=== PATIENT | female | born 1980 | race Caucasian/White ===

== ENCOUNTER 2017-03-14 03:48 | Emergency (ER) | payer SELFPAY ==
[2017-03-14 04:16] VITALS: BP 109/60; PULSE 79; RESP 18; TEMP 98.7; O2SAT 98
--- NOTE | 2017-03-14 04:51 | ED PDOC ---
HPI: General Adult Time Seen by Provider: 03/14/17 04:06 Chief Complaint (Nursing): ENT Problem History Per: Patient Additional Complaint(s): Pt. states since Thursday she's had cough and congestion. Reports her daughter was diagnosed with the flu earlier this week. Pt. states she was sleeping this evening when she suddenly felt a "pop" in her L ear and she noticed blood coming out of it. Reports hearing as if air is passing through her air. Denies trauma, headache, fever, sore throat, sore throat. Past Medical History Reviewed: Historical Data, Nursing Documentation, Vital Signs Vital Signs: Last Vital Signs Temp 98.7 F 03/14/17 04:13 Pulse 79 03/14/17 04:13 Resp 18 03/14/17 04:13 BP 109/60 03/14/17 04:13 Pulse Ox 98 03/14/17 04:13 - Family History Family History: States: No Known Family Hx - Home Medications Home Medications: Ambulatory Orders Medication Instructions Recorded Amoxicillin [Amoxil 500 mg Cap] 500 mg PO Q8 #21 cap 03/14/17 - Allergies Allergies/Adverse Reactions: Allergies Allergy/AdvReac Type Severity Reaction Status Date / Time No Known Allergies Allergy Verified 03/14/17 04:16 Review of Systems ROS Statement: Except As Marked, All Systems Reviewed And Found Negative ENT: Positive for: Ear Pain, Nose Congestion Respiratory: Positive for: Cough Physical Exam - Physical Exam Appears: Positive for: Well, Non-toxic, No Acute Distress Skin: Positive for: Normal Color, Warm. Negative for: Rash Eye Exam: Positive for: EOMI, Normal appearance, PERRL ENT: Positive for: TM Is/Are (L TM with small perforation and dry blood noted in canal; L TM is erythematous and bulging; no pain with pulling on tragus). Negative for: Pharyngeal Erythema, Tonsillar Exudate, Tonsillar Swelling Neck: Positive for: Normal, Painless ROM Cardiovascular/Chest: Positive for: Regular Rate, Rhythm Respiratory: Positive for: CNT, Normal Breath Sounds Neurologic/Psych: Positive for: Alert, Oriented - ECG O2 Sat by Pulse Oximetry: 98 Disposition - Clinical Impression Clinical Impression: Rupture of left tympanic membrane, Otitis media - Patient ED Disposition Is Patient to be Admitted: No - Disposition Referrals: Jose J Monroy MD [Staff Provider] - [facility] [place] [Outside] Disposition: Routine/Home Disposition Time: 04:20 Condition: STABLE Additional Instructions: FOLLOW UP WITH DR. MONROY, ENT, FOR FURTHER EVALUATION WITHOUT FAIL IF YOU ARE UNABLE TO FOLLOW UP WITH AN ENT GO TO [facility] FOR FURTHER EVALUATION. Prescriptions: Amoxicillin [Amoxil 500 mg Cap] 500 mg PO Q8 #21 cap Instructions: Otitis Media (ED), Ruptured Eardrum (ED) Forms: [employer] (Libyan) Print Language: BELARUSIAN
== END 2017-03-14 05:14 | disposition home or self-care (01) ==
LOC: H.ER 03:48
DX: H72.92 Unspecified perforation of tympanic membrane, left ear (principal)

== ENCOUNTER 2018-04-20 10:03 | Emergency (ER) | payer OTHER ==
[2018-04-20 10:12] VITALS: O2SAT 100
[2018-04-20 10:15] VITALS: BMI 24.9
[2018-04-20] MEDS ORDERED: Sodium Chloride 0.9% 1,000 ML IV STA (10:40)
[2018-04-20] MEDS ORDERED: Iohexol 240 (50 ml) PO ONE (10:40)
--- NOTE | 2018-04-20 11:02 | ED PDOC ---
HPI: Abdomen Time Seen by Provider: 04/20/18 10:18 Chief Complaint (Nursing): Abdominal Pain Chief Complaint (Provider): Abdominal pain History Per: Patient History/Exam Limitations: no limitations Onset/Duration Of Symptoms: Days Outside of [place] travel?: No Current Symptoms Are (Timing): Still Present Location Of Pain/Discomfort: Epigastric, Periumbilical, Suprapubic Additional History Per: Patient Additional Complaint(s): 37yo female, otherwise well, comes to ER reporting abdominal pain and low back pain since yesterday. She denies any associated nausea,vomiting, diarrhea or urinary symptoms. She has not taken any medication for her symptoms. Patient denies any recent travels, changes in food and offers no additional complaints. PMD: None Past Medical History Reviewed: Historical Data, Nursing Documentation, Vital Signs Vital Signs: Last Vital Signs Temp 98.5 F 04/20/18 10:11 Pulse 65 04/20/18 10:11 Resp 14 04/20/18 10:11 BP 113/66 04/20/18 10:11 Pulse Ox 100 04/20/18 10:11 - Medical History PMH: No Chronic Diseases - Surgical History Surgical History: Appendectomy - Family History Family History: States: No Known Family Hx - Social History Current smoker - smoking cessation education provided: No Alcohol: None Drugs: Denies - Home Medications Home Medications: Ambulatory Orders Medication Instructions Recorded Amoxicillin [Amoxil 500 mg Cap] 500 mg PO Q8 #21 cap 03/14/17 Famotidine [Pepcid] 20 mg PO DAILY PRN #6 tab 04/20/18 - Allergies Allergies/Adverse Reactions: Allergies Allergy/AdvReac Type Severity Reaction Status Date / Time No Known Allergies Allergy Verified 03/14/17 04:16 Review of Systems ROS Statement: Except As Marked, All Systems Reviewed And Found Negative Constitutional: Negative for: Fever, Chills Cardiovascular: Negative for: Chest Pain Respiratory: Negative for: Shortness of Breath Gastrointestinal: Positive for: Abdominal Pain Genitourinary Female: Negative for: Dysuria, Hematuria Musculoskeletal: Positive for: Back Pain Neurological: Negative for: Weakness, Numbness Physical Exam - Reviewed Nursing Documentation Reviewed: Yes Vital Signs Reviewed: Yes - Physical Exam Appears: Positive for: Non-toxic, No Acute Distress Head Exam: Positive for: ATRAUMATIC, NORMAL INSPECTION, NORMOCEPHALIC Skin: Positive for: Normal Color Eye Exam: Positive for: Normal appearance Neck: Positive for: Normal, Supple Cardiovascular/Chest: Positive for: Regular Rate, Rhythm Respiratory: Positive for: Normal Breath Sounds Gastrointestinal/Abdominal: Positive for: Soft, Tenderness (epigastric, periumb ilical and left lower quadrant tenderness). Negative for: Mass, Guarding, Rebound Back: Positive for: Normal Inspection. Negative for: L CVA Tenderness, R CVA Tenderness Extremity: Positive for: Normal ROM. Negative for: Deformity Neurologic/Psych: Positive for: Alert, Oriented. Negative for: Motor/Sensory Deficits - Laboratory Results Result Diagrams: 04/20/18 10:50 04/20/18 10:50 Lab Results: 3.5 k - ECG O2 Sat by Pulse Oximetry: 100 (RA) Pulse Ox Interpretation: Normal - Progress ED Course And Treament: 1614: Stable. AAOx3. Pain free. Tolerated PO. Fu with pcp. Had appendix removed previous. Medical Decision Making Medical Decision Making: Impression: Abdominal pain Plan: -- Labs -- Pepcid 20mg IV -- Zofran 4mg IV -- IV fluids -- CT Abdomen/Pelvis w/ contrast Scribe Attestation: Documented by Nirmala Olvera acting as a scribe for Aly Wong MD Provider Attestation: All medical record entries made by the Scribe were at my direction and personally dictated by me. I have reviewed the chart and agree that the record accurately reflects my personal performance of the history, physical exam, medical decision making, and the department course for this patient. I have also personally directed, reviewed, and agree with the discharge instructions and disposition. Disposition - Clinical Impression Clinical Impression: Abdominal pain, Hypokalemia - Patient ED Disposition Is Patient to be Admitted: No Counseled Patient/Family Regarding: Studies Performed, Diagnosis, Need For F ollowup, Rx Given - Disposition Referrals: [facility] [Outside] - 04/21/18 Disposition: Routine/Home Disposition Time: 12:16 Condition: STABLE Additional Instructions: Return if not better in 3 days. Prescriptions: Famotidine [Pepcid] 20 mg PO DAILY PRN #6 tab PRN Reason: Pain Instructions: Stomach Ache and Stomach Upset, Hypokalemia Print Language: HONDURAN
[2018-04-20] MEDS ORDERED: Iohexol 240 (50 ml) ONE (11:08)
[2018-04-20 12:34] LABS: ALB/GLOB RATIO 1.3 (1.0-2.1); ALBUMIN 4.5 g/dL (3.5-5.0); ALT/SGPT 28 U/L (9-52); AST/SGOT 21 U/L (14-36); BLOOD UREA NITROGEN 15 mg/dl (7-17); CALCIUM 9.1 mg/dL (8.4-10.2); GFR NON-AFRICAN AMERICAN > 60; LIPASE 69 U/L (23-300)
[2018-04-20] MEDS ORDERED: Iohexol 300 100 ML IJ ONE (13:48)
[2018-04-20] MEDS ORDERED: Sodium Chloride 0.9% 50 ML IV ONE (13:48)
--- NOTE | 2018-04-20 14:41 | CT ---
Date of service: 04/20/2018 PROCEDURE: CT Abdomen and Pelvis with contrast HISTORY: abd pain COMPARISON: None. TECHNIQUE: Following oral and intravenous contrast administration, a CT examination of the abdomen and pelvis was performed from the domes of the diaphragms to the symphysis pubis with reformatted datasets provided not only axial but also sagittal and coronal series. Contrast dose: Omnipaque 300, 95 cc Radiation dose: Total exam DLP = 451.95 mGy-cm. This CT exam was performed using one or more of the following dose reduction techniques: Automated exposure control, adjustment of the mA and/or kV according to patient size, and/or use of iterative reconstruction technique. FINDINGS: LOWER THORAX: Small hiatal hernia identified with lung bases otherwise unremarkable. LIVER: Diminished attenuation diffusely. No discrete mass or intrahepatic biliary dilatation identified. GALLBLADDER AND BILE DUCTS: Unremarkable. PANCREAS: Unremarkable. No gross lesion or ductal dilatation. SPLEEN: Unremarkable. ADRENALS: Unremarkable. No mass. KIDNEYS AND URETERS: Unremarkable. No hydronephrosis. No solid mass. VASCULATURE: Unremarkable. No aortic aneurysm. No aortic atherosclerotic calcification or mural plaque present. BOWEL: Unremarkable. No obstruction. No gross mural thickening. APPENDIX: Not identified. No CT evidence to suggest appendicitis at this time. PERITONEUM: Unremarkable. No free fluid. No free air. LYMPH NODES: Unremarkable. No enlarged lymph nodes. BLADDER: Moderate distension but thin and smooth walled. No pericystic reaction or intraluminal radiodense urolithiasis identified. REPRODUCTIVE: 1.5 cm cyst is seen at the left ovary with local fluid adjacent to suggestive of partial rupture. Right adnexal compartment appears unremarkable. BONES: No acute fracture. OTHER FINDINGS: None. IMPRESSION: 1. Hepatic steatosis with liver otherwise unremarkable. 2. No bowel obstruction, mesenteric edema, ascites or free intra peritoneal gas collection identified. No CT evidence of to suggest appendicitis at this time. 3. 1.5 cm cyst with partial rupture suggested left adnexal compartment.
[2018-04-20 15:07] LABS: BASO # 0.1 K/uL (0.0-0.2); BASO % 1.1 % (0.0-2.0); EOS # 0.1 K/uL (0.0-0.7); EOS % 0.7 % (0.0-4.0); HEMOGLOBIN 13.1 g/dL (12.0-16.0); LYMPH # 1.3 K/uL (1.0-4.3); LYMPH % 11.9 % (20.0-40.0); MEAN CELL VOLUME 87.3 fl (81.0-99.0); MEAN CORPUSCULAR HEMOGLOBIN 29.2 pg (27.0-31.0); MEAN CORPUSCULAR HGB CONC 33.5 g/dL (33.0-37.0); MEAN PLATELET VOLUME 9.3 fl (7.2-11.7); MONO # 0.4 K/uL (0.0-0.8); MONO % 3.4 % (0.0-10.0); NEUT # 9.3 K/uL (1.8-7.0); NEUT % 82.9 % (50.0-75.0); NRBC % 0.1 % (0.0-0.0); RBC 4.48 Mil/uL (3.80-5.20); WHITE BLOOD COUNT 11.2 K/uL (4.8-10.8)
[2018-04-20] MEDS ORDERED: Potassium Chloride 20 mEq ER Tab PO STA (16:13)
[2018-04-20] MEDS ORDERED: Potassium Chloride 20 mEq ER Tab PO ONE (16:27)
[2018-04-20 16:54] VITALS: BP 116/71; PULSE 61; RESP 16; TEMP 98
== END 2018-04-20 16:54 | disposition home or self-care (01) ==
LOC: H.ER 10:03
DX: R10.9 Unspecified abdominal pain (principal); E87.6 Hypokalemia
CPT/HCPCS: 74177; 80053; 81025; 83690; 85025; 96361; 96374; 96375; 99284; J1885; J2405; J7030; Q9966; Q9967